=== PATIENT | female | born 1980 | race Caucasian/White ===

== ENCOUNTER 2018-03-16 12:25 | Inpatient (IN) | payer OTHER ==
[~2018-03-16] VITALS: Ht 152.4 cm; Wt 68.5 kg
[2018-03-16] MEDS ORDERED: OXYTOCIN 30 UNITS/LACT RINGERS 500 ML IV ONE (14:19)
[2018-03-16] MEDS ORDERED: RINGERS SOLUTION,LACTATED 1,000 ML IV ONE (14:19)
[2018-03-16] MEDS ORDERED: LIDOCAINE/PF 1% 30 ML VIAL INJ PRN (14:30)
[2018-03-16] MEDS ORDERED: PREN1TAB80 PO (14:31)
[2018-03-16] MEDS ORDERED: LEVO100 PO (14:32)
[2018-03-16 14:59] LABS: EOSINOPHILS % (AUTO) 0.3 % (1.0-6.0); HEMATOCRIT 39.8 % (36-46); HEMOGLOBIN 13.7 g/dL (12.0-16.0); LYMPHOCYTES % (AUTO) 12.8 % (22.0-44.0); MEAN CORPUSCULAR HGB CONC 34.3 G/dL (31.0-37.0); MEAN CORPUSCULAR VOLUME 90 fL (80-100); MONOCYTES # (AUTO) 0.3 K/uL (0.1-1.0); MONOCYTES % (AUTO) 4.3 % (2.0-9.0); NEUTROPHILS # (AUTO) 6.4 K/uL (1.8-7.7); NEUTROPHILS % (AUTO) 81.6 % (40.0-70.0); PLATELET COUNT (AUTO)-OB 212 K/uL (150-450); RED BLOOD CELL COUNT(AUTO) 4.41 MIL/uL (4.00-5.20); RED CELL DISTRIBUTION WIDTH 13.7 % (11.5-14.5)
[2018-03-16] MEDS: RINGERS SOLUTION,LACTATED 1,000 ML IV SCH ×2 (15:13→19:15)
[2018-03-16] MEDS ORDERED: FentaNYL CITRATE-PF 100 MCG/2 ML VIAL IVP PRN (15:45)
[2018-03-16] MEDS ORDERED: MISOPROSTOL 25 MCG TABLET VG SCH ×2 (15:45→16:00)
[2018-03-16] MEDS ORDERED: DINOPROSTONE 10 MG VAGINAL SUPPOSITORY VG ONE (19:15)
[2018-03-16] MEDS ORDERED: TERBUTALINE SULFATE 1 MG/ML VIAL ONE (20:37)
[2018-03-16] MEDS ORDERED: TERBUTALINE SULFATE 1 MG/ML VIAL SQ ONE ×2 (20:45→22:30)
[2018-03-16] MEDS ORDERED: METOCLOPRAMIDE HCL 5 MG/ML 2 ML VIAL IVP ONE (22:45)
[2018-03-16] MEDS ORDERED: CITRIC ACID/SODIUM CITRATE 30 ML SOLUTION UDCUP PO ONE (22:45)
[2018-03-16] MEDS ORDERED: CeFAZolin 2 GM/DEXTROSE 50 ML IV ONE (22:45)
[2018-03-17] MEDS: RINGERS SOLUTION,LACTATED 1,000 ML IV SCH ×4 (03:13→21:38)
[2018-03-17] MEDS ORDERED: -PHARMACY NOTE- MISC ONE (07:15)
[2018-03-17] MEDS ORDERED: DINOPROSTONE 10 MG VAGINAL SUPPOSITORY VG ONE (07:45)
[2018-03-17] MEDS ORDERED: ROPIVACAINE HCL/PF 0.2% 100 ML ED ONE (11:45)
[2018-03-17] MEDS ORDERED: LIDOCAINE/PF 2% 5 ML VIAL ONE (11:45)
[2018-03-17] MEDS ORDERED: FentaNYL CITRATE-PF 100 MCG/2 ML VIAL ONE (12:20)
[2018-03-17] MEDS ORDERED: MIDAZOLAM HCL 2 MG/2 ML VIAL ONE (12:21)
[2018-03-17] MEDS ORDERED: GUM MASTIC/STORAX/MSAL/ALCOHOL LIQUID 0.67 ML VIAL TP ONE ×2 (12:37→12:38)
[2018-03-17] MEDS ORDERED: ACETAMINOPHEN 1000 MG/ISO-OSM 100 ML IV ONE (12:41)
[2018-03-17 12:43] LABS: CORD VENOUS BLOOD HCO3 17.8 mEq/L (22.0-26.0); TEMPERATURE, FAHRENHEIT, BG 98.6 FAHREN (96.0-98.6); TOTAL HGB CORD VENOUS 16.6 G/dL (12.5-18.0)
[2018-03-17 12:46] LABS: SOURCE, BLOOD GAS ARTERIAL; TEMPERATURE, FAHRENHEIT, BG 98.6 FAHREN (96.0-98.6)
[2018-03-17 12:49] LABS: SITE, BLOOD GAS CORD BLOOD; SOURCE, BLOOD GAS VENOUS
[2018-03-17 12:52] LABS: O2 DEVICE,BLOOD GAS VENTILATOR (ROOM AIR)
[2018-03-17 12:53] LABS: O2 DEVICE,BLOOD GAS VENTILATOR (ROOM AIR); SITE, BLOOD GAS CORD
[2018-03-17] MEDS ORDERED: DiphenhydrAMINE HCL 50 MG/ML VIAL IVP PRN (13:00)
[2018-03-17] MEDS ORDERED: MEPERIDINE-PF 25 MG/ML VIAL IVP PRN (13:00)
[2018-03-17] MEDS ORDERED: NALBUPHINE HCL 10 MG/ML VIAL IVP PRN (13:00)
[2018-03-17] MEDS ORDERED: DEXAMETHASONE SOD PHOS 4 MG/ML VIAL IVP PRN (13:00)
[2018-03-17] MEDS ORDERED: ONDANSETRON HCL 4 MG/2 ML VIAL IVP PRN (13:00)
[2018-03-17] MEDS ORDERED: MORPHINE SULFATE 4 MG/ML SYRINGE IVP PRN ×3 (13:00→15:15)
[2018-03-17] MEDS ORDERED: FentaNYL CITRATE-PF 100 MCG/2 ML VIAL IVP PRN ×3 (13:00)
[2018-03-17] MEDS: MORPHINE SULFATE 10 MG/ML SYRINGE IVP PRN ×2 (13:35→13:49)
[2018-03-17] MEDS ORDERED: HYDROmorphone 2 MG/ML SYRINGE IVP PRN (17:00)
[2018-03-17] MEDS: KETOROLAC TROMETHAMINE 30 MG/ML VIAL IVP SCH (18:08)
[2018-03-17] MEDS ORDERED: OXYGEN THERAPY IH SCH ×2 (20:00)
[2018-03-17] MEDS: ACETAMINOPHEN 1000 MG/ISO-OSM 100 ML IV SCH (20:46)
[2018-03-18] MEDS: KETOROLAC TROMETHAMINE 30 MG/ML VIAL IVP SCH ×3 (02:21→16:00)
[2018-03-18] MEDS: ACETAMINOPHEN 1000 MG/ISO-OSM 100 ML IV SCH (04:54)
[2018-03-18] MEDS ORDERED: SUCCINYLCHOLINE CHLORIDE 20 MG/ML 10 ML VIAL IVP ONE (05:20)
[2018-03-18] MEDS ORDERED: OXYTOCIN 10 UNITS/ML VIAL IM ONE (05:20)
[2018-03-18] MEDS ORDERED: PROPOFOL 1% 20 ML VIAL IVP ONE (05:20)
[2018-03-18] MEDS ORDERED: 0.9% SODIUM CHLORIDE 10 ML VIAL IVP ONE (05:20)
[2018-03-18] MEDS: LEVOTHYROXINE SODIUM 100 MCG TABLET PO SCH (06:20)
[2018-03-18] MEDS: RINGERS SOLUTION,LACTATED 1,000 ML IV SCH (06:20)
[2018-03-18] MEDS ORDERED: RINGERS SOLUTION,LACTATED 1,000 ML IV SCH (10:56)
[2018-03-18] MEDS ORDERED: OXYTOCIN 30 UNITS/LACT RINGERS 500 ML IV ONE (10:56)
[2018-03-18] MEDS ORDERED: LANOLIN 7 GM OINTMENT TP PRN (11:00)
[2018-03-18] MEDS ORDERED: OxyCODONE HCL/ACETAMINOPHEN 5-325 MG TABLET PO PRN ×2 (11:00)
[2018-03-18] MEDS: IBUPROFEN 800 MG TABLET PO PRN (22:17)
[2018-03-18] MEDS: MAGNESIUM HYDROXIDE SUSPENSION 30 ML UDCUP PO SCH (22:17)
[2018-03-19] MEDS: LEVOTHYROXINE SODIUM 100 MCG TABLET PO SCH (06:27)
[2018-03-19 06:28] LABS: BASOPHILS % (AUTO) 0.3 % (0.0-2.0); EOSINOPHILS % (AUTO) 0.3 % (1.0-6.0); HEMATOCRIT 32.2 % (36-46); HEMOGLOBIN 11.1 g/dL (12.0-16.0); LYMPHOCYTES # (AUTO) 1.2 K/uL (1.0-4.8); LYMPHOCYTES % (AUTO) 9.4 % (22.0-44.0); MEAN CORPUSCULAR HEMOGLOBIN 31.5 pg (26.0-34.0); MEAN CORPUSCULAR HGB CONC 34.5 G/dL (31.0-37.0); MEAN CORPUSCULAR VOLUME 91 fL (80-100); MONOCYTES # (AUTO) 0.8 K/uL (0.1-1.0); MONOCYTES % (AUTO) 5.8 % (2.0-9.0); NEUTROPHILS % (AUTO) 84.2 % (40.0-70.0); PLATELET COUNT (AUTO)-OB 167 K/uL (150-450); RED BLOOD CELL COUNT(AUTO) 3.52 MIL/uL (4.00-5.20); RED CELL DISTRIBUTION WIDTH 13.7 % (11.5-14.5)
[2018-03-19] MEDS: IBUPROFEN 800 MG TABLET PO PRN (06:33)
[2018-03-19] MEDS: MAGNESIUM HYDROXIDE SUSPENSION 30 ML UDCUP PO SCH (08:01)
[2018-03-19] MEDS ORDERED: IBUPROFEN 800 MG TABLET PO PRN (11:00)
[2018-03-19] MEDS ORDERED: PERCT PO (12:28)
[2018-03-19] MEDS ORDERED: IBUP-2071 PO (12:29)
[2018-03-19] MEDS ORDERED: DSS100 PO (12:30)
== END 2018-03-19 14:45 | disposition home or self-care (01) | DRG 788 ==
LOC: OBSVTOIN 12:25 → 4S 12:25
PROVIDERS: ADMIT Obstetrics & Gynecology; ATTEND Obstetrics & Gynecology
PROC: 10D00Z1 Extraction of Products of Conception, Low, Open Approach (ICD-10-PCS; principal; 2018-03-17)
DX: O76 Abnormality in fetal heart rate and rhythm complicating labor and delivery (principal); O69.81X0 Labor and delivery complicated by cord around neck, without compression, not applicable or unspecified; Z3A.39 39 weeks gestation of pregnancy; Z37.0 Single live birth
CPT/HCPCS: 82805; 86850; 86900; 86901; 87081; J0131; J0330; J0690; J1885; J2250; J2270; J2590; J2704; J2765; J2795; J3010; J3105; J3490; J7120